=== PATIENT | female | born 2000 | race Caucasian/White ===

== ENCOUNTER 2022-03-28 22:32 | Emergency (ER) | payer MEDICAID ==
--- NOTE | 2022-03-28 22:40 | ERPHSYRPT ---
- History of Present Illness Time Seen by Provider: 03/28/22 22:40 Source: patient Exam Limitations: no limitations Physician History: This is a 22-year-old white female who is here because of anxiety issues. She does not have chest pain or shortness of breath. She states that she is here because she does not know what to do with some social, family issues. She is looking for us to provide her with decision-making processes. She denies suicidal issues. She denies homicidal issues. She denies hallucinations. She has not ingested any illicit drugs or poisons. She has no abdominal pain. She is had no nausea vomiting diarrhea. Timing/Duration: today Severity of Symptoms-Max: mild Context related to: significant other, living circumstances Suicidal thoughts: other (No suicidal or homicidal ideation) Associated Symptoms: anxiety (About living situation and significant other) Previous symptoms: no prior history Allergies/Adverse Reactions: epinephrine [From Epi E-Z Pen] Allergy (Intermediate, Verified 03/28/22 22:52) Swelling of Face morphine Adverse Reaction (Severe, Verified 03/28/22 22:52) Home Medications: Levetiracetam [Keppra] 500 mg PO BID 03/28/22 [History] Travel Risk - International Travel Have you traveled outside of the country in past 3 weeks: No - Coronavirus Screening Are you exhibiting any of the following symptoms?: No Close contact with a COVID-19 positive Pt in past 14-21 Days: No - Past Medical History Pertinent Past Medical History: Yes - Past Surgical History Past Surgical History: Yes - Review of Systems Constitutional: No Symptoms Eyes: No Symptoms Ears, Nose, & Throat: No Symptoms Respiratory: No Symptoms Cardiac: No Symptoms Abdominal/Gastrointestinal: No Symptoms Genitourinary Symptoms: No Symptoms Musculoskeletal: No Symptoms Psychological: Anxiety, No Suicidal Ideations, No Homicidal Ideations, No Hallucinations Endocrine: No Symptoms Hematologic/Lymphatic: No Symptoms Immunological/Allergic: No Symptoms All Other Systems: Reviewed and Negative - Nursing Vital Signs Nursing Vital Signs: Initial Vital Signs Temperature 98.2 F 03/28/22 22:41 Pulse Rate 60 03/28/22 22:41 Respiratory Rate 20 03/28/22 22:41 Blood Pressure 117/98 03/28/22 22:41 O2 Sat by Pulse Oximetry 98 03/28/22 22:41 Pain Scale Pain Intensity 0 - Physical Exam General Appearance: no apparent distress, alert, anxiety Eyes, Ears, Nose, Throat Exam: normal ENT inspection, moist mucous membranes Neck Exam: normal inspection, non-tender, supple, full range of motion Respiratory Exam: airway intact, No chest tenderness, No respiratory distress Cardiovascular Exam: regular rate/rhythm, normal heart sounds, normal peripheral pulses Gastrointestinal/Abdominal Exam: No tenderness Extremities Exam: normal inspection, normal range of motion, No evidence of injury Current Suicidality: denies suicide plan Neurological Exam: alert, 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 She is not suicidal. She is not homicidal. She has no suicidal or homicidal plan. She is not hallucinating in any way. She wanted us to help her make some decisions regarding her living situation. I told her that our role is 1 of determining whether or not she has a medical issue especially an emergency medical issue. She does not have a medical issue or an emergency medical issue. I we will provide her with hydroxyzine 1 tablet here in the emergency department. She can follow-up with her primary care physician or mental health provider as an outpatient for further evaluation and management. 03/28/22 23:15 Patient does not require a work-up that includes EKG, blood work or radiographic studies Counseled pt/family regarding: diagnosis, need for follow-up - Departure Departure Disposition: Home Clinical Impression: Anxiety Condition: Stable Critical Care Time: No Additional Instructions: Follow-up with your primary care provider or mental health facility for further evaluation and management.
[2022-03-28] MEDS ORDERED: ATARAX 25 MG PO ONE (23:16)
[2022-03-28] MEDS ORDERED: ATARAX 25 MG ONE (23:19)
[2022-03-28 23:35] VITALS: BP 124/87; PULSE 78; O2SAT 97
== END 2022-03-28 23:38 | disposition home or self-care (01) ==
LOC: ED 22:32
DX: F41.9 Anxiety disorder, unspecified (principal); Z59.9 Problem related to housing and economic circumstances, unspecified; Z63.0 Problems in relationship with spouse or partner; Z79.899 Other long term (current) drug therapy
CPT/HCPCS: 99281; A9270-GY

== ENCOUNTER 2022-04-14 22:19 | Emergency (ER) | payer MEDICAID ==
--- NOTE | 2022-04-14 23:01 | ERPHSYRPT ---
- History of Present Illness Time Seen by Provider: 04/14/22 22:31 Source: patient Exam Limitations: no limitations Patient Subjective Stated Complaint: pt states "I have been sick to my stomach for the past month." Triage Nursing Assessment: pt ambulated into the er; pt is axo x4; c/o nausea; pt states 7/10 pain to lower abd; pt denies V/D; abd is large, round, non tender; active bowel sounds in all quads; pt states "I have all the same sympto ms like I did when I was with my daughter."; pt states frequency and urgency with urination; vitals wnl Physician History: 22 years old female presented in the ER with chief complaint of off-and-on nausea early in the morning without vomiting. She also reports lower abdominal pain at times. Currently denies any abdominal pain. Reports feeling as if she is as she had a similar symptoms with previous . Does report some having urinary increased frequency, burning and some suprapubic discomfort. No fever or chills reported. Timing/Duration: week(s) (4), intermittent Severity: mild, moderate Associated Symptoms: nausea, No vomiting, No abdominal pain, No shortness of breath, No heartburn, No diaphoresis, No cough, No chills, No chest pain, No fever, No headaches, No loss of appetite, No malaise, No syncope Allergies/Adverse Reactions: epinephrine [From Epi E-Z Pen] Allergy (Intermediate, Verified 04/14/22 22:26) Swelling of Face morphine Adverse Reaction (Severe, Verified 04/14/22 22:26) Home Medications: Levetiracetam [Keppra] 500 mg PO BID 03/28/22 [History] Hx Tetanus, Diphtheria Vaccination/Date Given: Yes Hx Influenza Vaccination/Date Given: No Hx Pneumococcal Vaccination/Date Given: No Immunizations Up to Date: Yes Travel Risk - International Travel Have you traveled outside of the country in past 3 weeks: No - Coronavirus Screening Are you exhibiting any of the following symptoms?: No Close contact with a COVID-19 positive Pt in past 14-21 Days: No - Vaccine Status Have you recieved a Covid-19 vaccination: Yes Floor Steward/Stewardess: Unknown - Vaccination Dates Dates if Unknown: . - Review of Systems Constitutional: No Symptoms Ears, Nose, & Throat: No Symptoms Respiratory: No Symptoms Cardiac: No Symptoms Abdominal/Gastrointestinal: Abdominal Pain, Nausea Genitourinary Symptoms: Dysuria, Frequency Musculoskeletal: No Symptoms Neurological: No Symptoms Hematologic/Lymphatic: No Symptoms Immunological/Allergic: No Symptoms - Past Medical History Pertinent Past Medical History: Yes Neurological History: Seizures ENT History: No Pertinent History Cardiac History: No Pertinent History Respiratory History: Asthma Endocrine Medical History: No Pertinent History Musculoskeletal History: No Pertinent History GI Medical History: No Pertinent History History: No Pertinent History Psycho-Social History: Anxiety, Depression, Other Female Reproductive Disorders: Other Other Medical History: anemia. PCOS. pre-eclampsia. PTSD - Past Surgical History Past Surgical History: No - Social History Smoking Status: Current every day smoker How long have you smoked: 4 yrs Exposure to second hand smoke: Yes Drug Use: marijuana, methamphetamines Patient Lives Alone: No - Female History Hx Now: No (unsure) - Nursing Vital Signs Nursing Vital Signs: Initial Vital Signs Temperature 97.4 F 04/14/22 22:30 Pulse Rate 99 H 04/14/22 22:30 Respiratory Rate 14 04/14/22 22:30 Blood Pressure 134/81 04/14/22 22:30 O2 Sat by Pulse Oximetry 97 04/14/22 22:30 Pain Scale Pain Intensity 7 - Physical Exam General Appearance: no apparent distress, alert Eye Exam: PERRL/EOMI Neck Exam: normal inspection, full range of motion Respiratory Exam: normal breath sounds, lungs clear Cardiovascular Exam: regular rate/rhythm, normal heart sounds Gastrointestinal/Abdomen Exam: soft, normal bowel sounds, No tenderness, No guarding Back Exam: normal inspection, normal range of motion, No CVA tenderness Extremity Exam: normal inspection, normal range of motion Neurologic Exam: alert, oriented x 3, cooperative Skin Exam: normal color SpO2 Interpretation: normal SpO2: 97 O2 Delivery: Room Air Ordered Tests: Active Orders 24 hr Category Date Time Status CULTURE,URINE Stat Lab 04/14/22 22:30 Received HCG,QUALITATIVE URINE Stat Lab 04/14/22 22:30 Completed UA W/RFX CULTURE Stat Lab 04/14/22 22:30 Completed Medication Summary Discontinued Medications Generic Name Dose Route Start Last Admin Trade Name Freq PRN Reason Stop Dose Admin Ceftriaxone Sodium 1,000 mg 04/14/22 23:22 04/14/22 23:25 Ceftriaxone Sodium 1000 Mg Inj Vial IM 04/14/22 23:23 1,000 mg STAT ONE Administration Ceftriaxone Sodium Confirm 04/14/22 23:23 Ceftriaxone Sodium 1000 Mg Inj Vial Administered 04/14/22 23:24 Dose 1,000 mg .ROUTE .STK-MED ONE Lidocaine HCl Confirm 04/14/22 23:24 Lidocaine Hcl 1% 20 Ml Mdv 20 Ml Ml Administered 04/14/22 23:25 Dose 3 ml .ROUTE .STK-MED ONE Lab/Rad Data: Laboratory Results 04/14/22 04/14/22 Range/Units 22:30 22:30 Urinalys Dipstick Clnc MAIN LAB Urine Color YELLOW (YELLOW) Urine Appearance CLEAR (CLEAR) Urine pH 5.0 (5-6) Ur Specific [place] >=1.030 (1.005-1.025) POC Urine Protein Conf NEGATIVE (Negative) Urine Ketones NEGATIVE (NEGATIVE) Urine Nitrite NEGATIVE (NEGATIVE) Urine Bilirubin NEGATIVE (NEGATIVE) Urine Urobilinogen 0.2 (0-1) mg/dL Urine Leukocytes SMALL (NEGATIVE) Urine WBC (Auto) 51-100 (0-5) /HPF Urine RBC (Auto) 3-5 (0-2) /HPF U Epithel Cells (Auto) FEW (FEW) /HPF Urine Bacteria (Auto) FEW (NEGATIVE) /HPF Urine RBC TRACE-INTACT (0-5) Hubert/ul Other Casts (Auto) 2-5 (NEGATIVE) /LPF Urine Mucus (Auto) SLIGHT (NEGATIVE) /HPF Ur Culture Indicated? YES Urine Glucose NEGATIVE (NEGATIVE) mg/dL Urine HCG, Qual NEGATIVE (Negative) - Progress Progress: unchanged, re-examined Progress Note: 04/14/22 23:31 Minimal suprapubic tenderness on abdominal exam. Does have UTI/cystitis. Given a dose of Rocephin and will continue with Keflex to go home. Patient test is negative. Do not think needs further lab work or imaging based on exam and presentation. Recommended outpatient follow-up. Discussed signs symptoms of worsening needing return to ER which she seems understanding. Counseled pt/family regarding: lab results, diagnosis, need for follow-up - Departure Departure Disposition: Home Clinical Impression: Acute cystitis Condition: Stable Critical Care Time: No Referrals: DOCTOR,NO FAMILY [Primary Care Provider] - Follow up/PCP as directed DAVIS SABA MD [ACTIVE STAFF] - Follow Up with PCP/3 days Instructions: Acute Cystitis (DC) Additional Instructions: Take Tylenol/ibuprofen as needed for pain. Drink plenty of fluids. Follow-up with primary care for reevaluation. Return to ER for any worsening. Prescriptions: Cephalexin Mh 500 mg [Keflex 500 mg] 500 mg PO TID #21 cap
[2022-04-14 23:09] LABS: Appearance CLEAR (CLEAR); Bilirubin NEGATIVE (NEGATIVE); Glucose NEGATIVE (NEGATIVE)
[2022-04-14 23:10] LABS: Dipstick done @ ? MAIN LAB; Ketones NEGATIVE (NEGATIVE); Nitrite NEGATIVE (NEGATIVE); Protein,Urine Dip NEGATIVE (Negative); RBC TRACE-INTACT Ery/ul (0-5); Specific Gravity >=1.030 (1.005-1.025); Urobilinogen 0.2 mg/dL (0-1)
[2022-04-14 23:13] LABS: Bacteria FEW /HPF (NEGATIVE); Epithelial Cells FEW /HPF (FEW); Mucus SLIGHT /HPF (NEGATIVE); WBC 51-100 /HPF (0-5)
[2022-04-14 23:16] LABS: Urine Cultured Indicated? YES
[2022-04-14] MEDS ORDERED: Rocephin 1000 MG INJ IM ONE (23:22)
[2022-04-14] MEDS ORDERED: Rocephin 1000 MG INJ ONE (23:23)
[2022-04-14] MEDS ORDERED: XYLOCAINE 1% HCL 20 ML MDV ONE (23:24)
[2022-04-14 23:44] VITALS: BP 101/63; PULSE 84; O2SAT 98
== END 2022-04-14 23:44 | disposition home or self-care (01) ==
LOC: ED 22:19
DX: N30.00 Acute cystitis without hematuria (principal); R11.0 Nausea; R35.0 Frequency of micturition; R30.0 Dysuria; R10.2 Pelvic and perineal pain; Z72.0 Tobacco use; Z79.899 Other long term (current) drug therapy
CPT/HCPCS: 81015; 81025; 87077; 87086; 87186; 96372; 99283; J0696

== ENCOUNTER 2022-05-18 18:21 | Emergency (ER) | payer MEDICAID ==
--- NOTE | 2022-05-18 18:26 | ERPHSYRPT ---
- History of Present Illness Time Seen by Provider: 05/18/22 18:26 Historian: patient, EMS Exam Limitations: no limitations Physician History: This is a 22-year-old white female who is morbidly obese and was brought into the emergency department by ambulance service after she had complained of some abdominal pain during a stressful situation where her significant other was having his invalid local flatbed driver's license taken away by law enforcement. Patient found out today that she was . She has no complaints of vaginal bleeding. She has had no significant nausea vomiting or diarrhea. Patient states her last menstrual period was in the end of February sometime but she does not recall the specific date. Patient has a history of seizure disorder, polycystic ovary syndrome, PTSD and anxiety issues. Patient arrives to the emergency department via ambulance service. She was smiling laughing and in no distress. Timing/Duration: today Activities at Onset: none Quality: aching Abdominal Pain Onset Location: LLQ Pain Radiation: no radiation Severity of Pain-Max: mild Severity of Pain-Current: mild Modifying Factors: Improves With: nothing Associated Symptoms: denies symptoms Previous symptoms: no prior history Allergies/Adverse Reactions: epinephrine [From Epi E-Z Pen] Allergy (Intermediate, Verified 05/18/22 18:33) Swelling of Face morphine Adverse Reaction (Severe, Verified 05/18/22 18:33) Home Medications: Levetiracetam [Keppra] 500 mg PO BID 03/28/22 [History] Hx Tetanus, Diphtheria Vaccination/Date Given: Yes Hx Influenza Vaccination/Date Given: No Hx Pneumococcal Vaccination/Date Given: No Travel Risk - International Travel Have you traveled outside of the country in past 3 weeks: No - Coronavirus Screening Are you exhibiting any of the following symptoms?: No Close contact with a COVID-19 positive Pt in past 14-21 Days: No - Vaccine Status Have you recieved a Covid-19 vaccination: Yes Computer Tech: Unknown - Vaccination Dates Dates if Unknown: . - Review of Systems Constitutional: No Symptoms Eyes: No Symptoms Ears, Nose, & Throat: No Symptoms Respiratory: No Symptoms Cardiac: No Symptoms Abdominal/Gastrointestinal: Abdominal Pain Genitourinary Symptoms: No Symptoms Musculoskeletal: No Symptoms Skin: No Symptoms Neurological: No Symptoms Psychological: No Symptoms Endocrine: No Symptoms Hematologic/Lymphatic: No Symptoms Immunological/Allergic: No Symptoms All Other Systems: Reviewed and Negative - Past Medical History Pertinent Past Medical History: Yes Neurological History: Seizures ENT History: No Pertinent History Cardiac History: No Pertinent History Respiratory History: Asthma Endocrine Medical History: No Pertinent History Musculoskeletal History: No Pertinent History GI Medical History: No Pertinent History History: No Pertinent History Psycho-Social History: Anxiety, Depression, Other Female Reproductive Disorders: Other Other Medical History: anemia. PCOS. pre-eclampsia. PTSD - Past Surgical History Past Surgical History: No - Social History Smoking Status: Current every day smoker How long have you smoked: 4 yrs Exposure to second hand smoke: Yes Drug Use: marijuana, methamphetamines Patient Lives Alone: No - Nursing Vital Signs Nursing Vital Signs: Initial Vital Signs Temperature 97.3 F 05/18/22 18:30 Pulse Rate 94 H 05/18/22 18:30 Respiratory Rate 18 05/18/22 18:30 Blood Pressure 124/85 05/18/22 18:30 O2 Sat by Pulse Oximetry 100 05/18/22 18:30 Pain Scale Pain Intensity 4 - Physical Exam General Appearance: no apparent distress, alert, anxiety, obese Eye Exam: PERRL/EOMI, eyes nml inspection Ears, Nose, Throat Exam: normal ENT inspection, moist mucous membranes Neck Exam: normal inspection, non-tender, supple, full range of motion Respiratory Exam: normal breath sounds, lungs clear, airway intact, No chest tenderness, No respiratory distress Cardiovascular Exam: regular rate/rhythm, normal heart sounds, normal peripheral pulses Gastrointestinal/Abdomen Exam: soft, normal bowel sounds, No tenderness, No guarding, No rebound Pelvic Exam: not done Rectal Exam: not done Back Exam: normal inspection, normal range of motion, No CVA tenderness, No vertebral tenderness Extremity Exam: normal inspection, normal range of motion, pelvis stable Neurologic Exam: alert, oriented x 3, cooperative, 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, normal mood/affect, nml cerebellar function, nml station & gait, sensation nml Skin Exam: normal color, warm, dry Lymphatic Exam: No adenopathy SpO2 Interpretation: normal O2 Delivery: Room Air - Course Nursing assessment & vital signs reviewed: Yes Ordered Tests: Active Orders 24 hr Category Date Time Status IV Insertion STAT Care 05/18/22 18:26 Active AMYLASE Stat Lab 05/18/22 18:38 Completed CBC W DIFF Stat Lab 05/18/22 18:38 Completed CMP Stat Lab 05/18/22 18:38 Completed CULTURE,URINE Stat Lab 05/18/22 19:08 Received HCG QUALITATIVE,SERUM Stat Lab 05/18/22 18:38 Completed LIPASE Stat Lab 05/18/22 18:38 Completed UA W/RFX CULTURE Stat Lab 05/18/22 19:08 Completed Medication Summary Discontinued Medications Generic Name Dose Route Start Last Admin Trade Name Marcela PRN Reason Stop Dose Admin Sodium Chloride 1,000 mls @ 999 mls/hr 05/18/22 18:26 05/18/22 19:03 Sodium Chloride 0.9% 1000 Ml IV 05/18/22 19:26 999 mls/hr .Q1H1M STA Administration Sodium Chloride Confirm 05/18/22 19:01 Sodium Chloride 0.9% 1000 Ml Administered 05/18/22 19:02 Dose 1,000 mls @ ud .ROUTE .STK-MED ONE Lab/Rad Data: Laboratory Result Diagrams 05/18/22 18:38 05/18/22 18:38 Laboratory Results 05/18/22 05/18/22 05/18/22 Range/Units 19:08 18:38 18:38 WBC (4.0-10.5) x10^3/uL RBC (4.1-5.4) x10^6/uL Hgb (12.0-16.0) g/dL Hct (35-47) % MCV (78-100) fL MCH (26-32) pg MCHC (32-36) g/dL RDW (11.5-14.0) % Plt Count (150-450) x10^3/uL MPV (7.5-11.0) fL Gran % (36.0-66.0) % Immature Gran % (Auto) (0.00-0.4) % Nucleat RBC Rel Count (0.00-0.1) % Eos # (Auto) (0-0.5) x10^3/uL Immature Gran # (Auto) (0.00-0.03) x10^3u/L Absolute Lymphs (auto) (1.0-4.6) x10^3/uL Absolute Monos (auto) (0.0-1.3) x10^3/uL Absolute Nucleated RBC (0.00-0.01) x10^3u/L Lymphocytes % (24.0-44.0) % Monocytes % (0.0-12.0) % Eosinophils % (0.00-5.0) % Basophils % (0.0-0.4) % Absolute Granulocytes (1.4-6.9) x10^3/uL Basophils # (0-0.4) x10^3/uL Sodium 138 (137-145) mmol/L Potassium 3.8 (3.5-5.1) mmol/L Chloride 103 (98-107) mmol/L Carbon Dioxide 26 (22-30) mmol/L Anion Gap 12.8 (5-15) MEQ/L BUN 12 (7-17) mg/dL Creatinine 0.79 (0.52-1.04) mg/dL Estimated GFR > 60.0 ML/MIN Glucose 84 (74-106) mg/dL Calcium 9.3 (8.4-10.2) mg/dL Total Bilirubin 0.30 (0.2-1.3) mg/dL AST 32 (14-36) U/L ALT 50 H (0-35) U/L Alkaline Phosphatase 108 (38-126) U/L Serum Total Protein 8.5 H (6.3-8.2) g/dL Albumin 4.4 (3.5-5.0) g/dL Amylase 55 (30-110) U/L Lipase 48 (23-300) U/L Serum , Qual POSITIVE (Negative) Urinalys Dipstick Clnc MAIN LAB Urine Color YELLOW (YELLOW) Urine Appearance SLIGHTLY CLOUDY A (CLEAR) Urine pH 5.5 (5-6) Ur Specific [place] >=1.030 A (1.005-1.025) POC Urine Protein Conf TRACE A (Negative) Urine Ketones NEGATIVE (NEGATIVE) Urine Nitrite NEGATIVE (NEGATIVE) Urine Bilirubin NEGATIVE (NEGATIVE) Urine Urobilinogen 0.2 (0-1) mg/dL Urine Leukocytes SMALL A (NEGATIVE) Urine WBC (Auto) 11-15 A (0-5) /HPF Urine RBC (Auto) 3-5 A (0-2) /HPF U Epithel Cells (Auto) MANY (FEW) /HPF Urine Bacteria (Auto) NONE (NEGATIVE) /HPF Urine RBC NEGATIVE (0-5) Hubert/ul Urine Mucus (Auto) SLIGHT A (NEGATIVE) /HPF Ur Culture Indicated? YES Urine Glucose NEGATIVE (NEGATIVE) mg/dL 05/18/22 Range/Units 18:38 WBC 11.9 H (4.0-10.5) x10^3/uL RBC 4.86 (4.1-5.4) x10^6/uL Hgb 11.0 L (12.0-16.0) g/dL Hct 36.6 (35-47) % MCV 75.3 L (78-100) fL MCH 22.6 L (26-32) pg MCHC 30.1 L (32-36) g/dL RDW 19.1 H (11.5-14.0) % Plt Count 347 (150-450) x10^3/uL MPV 9.9 (7.5-11.0) fL Gran % 72.0 H (36.0-66.0) % Immature Gran % (Auto) 0.4 (0.00-0.4) % Nucleat RBC Rel Count 0.0 (0.00-0.1) % Eos # (Auto) 0.09 (0-0.5) x10^3/uL Immature Gran # (Auto) 0.05 H (0.00-0.03) x10^3u/L Absolute Lymphs (auto) 2.55 (1.0-4.6) x10^3/uL Absolute Monos (auto) 0.61 (0.0-1.3) x10^3/uL Absolute Nucleated RBC 0.00 (0.00-0.01) x10^3u/L Lymphocytes % 21.4 L (24.0-44.0) % Monocytes % 5.1 (0.0-12.0) % Eosinophils % 0.8 (0.00-5.0) % Basophils % 0.3 (0.0-0.4) % Absolute Granulocytes 8.59 H (1.4-6.9) x10^3/uL Basophils # 0.04 (0-0.4) x10^3/uL Sodium (137-145) mmol/L Potassium (3.5-5.1) mmol/L Chloride (98-107) mmol/L Carbon Dioxide (22-30) mmol/L Anion Gap (5-15) MEQ/L BUN (7-17) mg/dL Creatinine (0.52-1.04) mg/dL Estimated GFR ML/MIN Glucose (74-106) mg/dL Calcium (8.4-10.2) mg/dL Total Bilirubin (0.2-1.3) mg/dL AST (14-36) U/L ALT (0-35) U/L Alkaline Phosphatase (38-126) U/L Serum Total Protein (6.3-8.2) g/dL Albumin (3.5-5.0) g/dL Amylase (30-110) U/L Lipase (23-300) U/L Serum , Qual (Negative) Urinalys Dipstick Clnc Urine Color (YELLOW) Urine Appearance (CLEAR) Urine pH (5-6) Ur Specific [place] (1.005-1.025) POC Urine Protein Conf (Negative) Urine Ketones (NEGATIVE) Urine Nitrite (NEGATIVE) Urine Bilirubin (NEGATIVE) Urine Urobilinogen (0-1) mg/dL Urine Leukocytes (NEGATIVE) Urine WBC (Auto) (0-5) /HPF Urine RBC (Auto) (0-2) /HPF U Epithel Cells (Auto) (FEW) /HPF Urine Bacteria (Auto) (NEGATIVE) /HPF Urine RBC (0-5) Hubert/ul Urine Mucus (Auto) (NEGATIVE) /HPF Ur Culture Indicated? Urine Glucose (NEGATIVE) mg/dL - Departure Departure Disposition: Home Clinical Impression: UTI in Condition: Stable Critical Care Time: No Referrals: DOCTOR,NO FAMILY [Primary Care Provider] - Follow up/PCP as directed Additional Instructions: Drink plenty of fluids. Take your medication as prescribed. Follow-up with your primary care provider and tip stretcher for further evaluation management Prescriptions: Cephalexin Mh 500 mg [Keflex 500 mg] 500 mg PO TID #21 cap
[2022-05-18 18:41] LABS: Absolute Neutrophil Ct (ANC) 8.59 x10^3/uL (1.4-6.9); Basophil (Absolute #) 0.04 x10^3/uL (0-0.4); Eosinophil % 0.8 % (0.00-5.0); Eosinophil (Absolute #) 0.09 x10^3/uL (0-0.5); Hematocrit 36.6 % (35-47); Lymphocyte (Absolute #) 2.55 x10^3/uL (1.0-4.6); Lymphocytes % 21.4 % (24.0-44.0); Mean Cell Volume 75.3 fL (78-100); Mean Corpuscular Hemoglobin 22.6 pg (26-32); Mean Corpuscular Hgb Concent. 30.1 g/dL (32-36); Mean Platelet Volume 9.9 fL (7.5-11.0); Monocyte (Absolute #) 0.61 x10^3/uL (0.0-1.3); Monocytes % 5.1 % (0.0-12.0); Platelet Count 347 x10^3/uL (150-450); Red Blood Count 4.86 x10^6/uL (4.1-5.4); Red Cell Distribution Width 19.1 % (11.5-14.0); White Blood Count 11.9 x10^3/uL (4.0-10.5)
[2022-05-18 18:57] LABS: ALBUMIN 4.4 g/dL (3.5-5.0); ALKALINE PHOSPHATASE 108 U/L (38-126); AMYLASE 55 U/L (30-110); ANION GAP 12.8 MEQ/L (5-15); BLOOD UREA NITROGEN 12 mg/dL (7-17); CHLORIDE 103 mmol/L (98-107); Calcium 9.3 mg/dL (8.4-10.2); Carbon Dioxide 26 mmol/L (22-30); Creatinine 1 0.79 mg/dL (0.52-1.04); EST GLOMERULAR FILTRATION RATE > 60.0 ML/MIN; Glucose 84 mg/dL (74-106); LIPASE 48 U/L (23-300); Potassium 3.8 mmol/L (3.5-5.1); SGOT/AST 32 U/L (14-36); SGPT/ALT 50 U/L (0-35); SODIUM 138 mmol/L (137-145); Total Protein 8.5 g/dL (6.3-8.2)
[2022-05-18] MEDS ORDERED: Sodium Chloride 0.9% 1000 ML 1,000 ML ONE (19:01)
[2022-05-18] MEDS: Sodium Chloride 0.9% 1000 ML 1,000 ML IV STA (19:03)
[2022-05-18 19:34] LABS: Appearance SLIGHTLY CLOUDY (CLEAR); Bilirubin NEGATIVE (NEGATIVE); Glucose NEGATIVE (NEGATIVE); Ketones NEGATIVE (NEGATIVE); Nitrite NEGATIVE (NEGATIVE); Ph 5.5 (5-6); Protein,Urine Dip TRACE (Negative); RBC NEGATIVE Ery/ul (0-5); Specific Gravity >=1.030 (1.005-1.025); Urobilinogen 0.2 mg/dL (0-1)
[2022-05-18 19:35] LABS: Dipstick done @ ? MAIN LAB
[2022-05-18 19:38] LABS: Epithelial Cells MANY /HPF (FEW); Mucus SLIGHT /HPF (NEGATIVE)
[2022-05-18 19:40] LABS: Urine Cultured Indicated? YES
[2022-05-18] MEDS ORDERED: KEFLEX 500 MG ONE (20:10)
[2022-05-18] MEDS: KEFLEX 500 MG PO ONE (20:11)
[2022-05-18 20:19] VITALS: BP 145/86; PULSE 90; O2SAT 99
== END 2022-05-18 20:20 | disposition home or self-care (01) ==
LOC: ED 18:21
DX: O23.40 Unspecified infection of urinary tract in pregnancy, unspecified trimester (principal); N39.0 Urinary tract infection, site not specified; Z3A.00 Weeks of gestation of pregnancy not specified; Z72.0 Tobacco use; Z79.899 Other long term (current) drug therapy
CPT/HCPCS: 36000; 36415; 80053; 81015; 82150; 83690; 84703; 85025; 87086; 99283; A9270-GY